=== PATIENT | female | born 1950 | race Caucasian/White ===

== ENCOUNTER 2017-02-05 08:36 | Outpatient (CLI) | payer OTHER ==
[2017-02-05 08:58] LABS: #Basophils 0.1 thou/uL (0.0-0.2); #Eosinphils 0.2 thou/uL (0.0-0.7); #Lymphocytes 1.9 thou/uL (1.20-3.40); #Monocytes 0.6 thou/uL (0.11-0.59); #Neutrophils 3.3 thou/uL (1.40-6.50); %Basophils 1.7 % (0.0-1.0); %Eosinophils 3.8 % (0.0-10.0); %Lymphocytes 31.2 % (21.0-51.0); %Neutrophils 54.3 % (42.0-75.0); Hemoglobin 14.4 g/dL (12.0-16.0); Mean Corpuscular HGB CONC 34.2 g/dL (32.0-36.0); Mean Corpuscular Hemoglobin 29.5 pg (27.0-31.0); Mean Corpuscular Volume 86.1 fl (81.0-99.0); Mean Platelet Volume 7.7 fL (7.4-10.4); Platelet Count 266 thou/uL (130-400); Red Blood Cell (RBC) Count 4.88 mill/uL (4.20-5.40); White Blood Cell (WBC) Count 6.1 thou/uL (4.8-10.8)
[2017-02-05 09:18] LABS: ALT (SGPT) 39 U/L (8-55); AST (SGOT) 26 U/L (5-34); Albumin 4.4 g/dL (3.4-4.8); Alkaline Phosphatase 55 U/L (40-150); Anion Gap 19 mmol/L (10-20); BUN (Urea Nitrogen) 9 mg/dL (9.8-20.1); Bilirubin, Total 0.6 mg/dL (0.2-1.2); Calc. Creatinine Clearance 0 mL/min (70-130); Calcium 9.6 mg/dL (7.8-10.44); Carbon Dioxide 22 mmol/L (23-31); Cardiac Risk 4.2 (Less than 4.5); Chloride 102 mmol/L (98-107); Cholesterol 134 mg/dl (< 200 Desired); Estimated GFR-MDRD 71; Globulin 3.1 g/dL (2.4-3.5); Glucose 118 mg/dL (80-115); HDL Cholesterol 32 mg/dL (>60 Neg Risk); LDL Cholesterol, Calculated 71 mg/dL; Potassium 3.7 mmol/L (3.5-5.1); Protein, Total 7.5 g/dL (6.0-8.3); Sodium 139 mmol/L (136-145); Triglycerides 156 mg/dL (Less than 150)
== END 2017-02-05 08:37 | disposition home or self-care (01) ==
LOC: MADLAB 08:36
PROVIDERS: ATTEND Family Medicine
DX: E03.9 Hypothyroidism, unspecified (principal); E78.00 Pure hypercholesterolemia, unspecified; I10 Essential (primary) hypertension
CPT/HCPCS: 36415; 80053; 80061; 84443; 85025

== ENCOUNTER 2017-02-22 17:16 | Emergency (ER) | payer OTHER ==
[2017-02-22] MEDS ORDERED: cloNIDine HCl 0.1 MG TAB ONE (17:47)
[2017-02-22] MEDS ORDERED: Aspirin 325 MG TAB ONE (17:47)
[2017-02-22 19:51] LABS: ALT (SGPT) 40 U/L (8-55); AST (SGOT) 28 U/L (5-34); Albumin 4.1 g/dL (3.4-4.8); Alkaline Phosphatase 50 U/L (40-150); Anion Gap 15 mmol/L (10-20); BUN (Urea Nitrogen) 10 mg/dL (9.8-20.1); Bilirubin, Total 0.3 mg/dL (0.2-1.2); Calc. Creatinine Clearance 0 mL/min (70-130); Calcium 8.9 mg/dL (7.8-10.44); Carbon Dioxide 23 mmol/L (23-31); Chloride 106 mmol/L (98-107); Estimated GFR-MDRD 86; Globulin 2.8 g/dL (2.4-3.5); Glucose 108 mg/dL (80-115); Lipase 84 U/L (8-78); Potassium 3.2 mmol/L (3.5-5.1); Protein, Total 6.9 g/dL (6.0-8.3); Sodium 141 mmol/L (136-145)
[2017-02-22 19:53] LABS: CKMB 2.1 ng/mL (0-6.6); Troponin I 0.012 ng/mL (< 0.028)
[2017-02-22 19:57] LABS: Eosinophils 3 % (0-10); Lymphocytes 36 % (21-51); MDiff Complete? YES; Mean Corpuscular HGB CONC 34.7 g/dL (32.0-36.0); Mean Corpuscular Hemoglobin 29.3 pg (27.0-31.0); Mean Corpuscular Volume 84.2 fl (81.0-99.0); Monocytes 9 % (0-10); Neutrophil 52 % (42-75); PLT Morphology Comment Appears Adequate; Platelet Count 202 thou/uL (130-400); Red Blood Cell (RBC) Count 4.45 mill/uL (4.20-5.40); White Blood Cell (WBC) Count 6.3 thou/uL (4.8-10.8)
[2017-02-22 19:57] LABS: Prothrombin Time 13.9 SEC (12.0-14.7)
[2017-02-22 20:00] LABS: PTT 20.2 SEC (22.9-36.1)
== END 2017-02-22 20:40 | disposition home or self-care (01) ==
LOC: MADERS 17:16
DX: R09.1 Pleurisy (principal); R07.89 Other chest pain; I10 Essential (primary) hypertension; E78.5 Hyperlipidemia, unspecified; F17.210 Nicotine dependence, cigarettes, uncomplicated; Z79.899 Other long term (current) drug therapy
CPT/HCPCS: 80053; 82553; 83690; 83880; 84484; 85025; 85610; 85730; 93005

== ENCOUNTER 2018-10-06 07:25 | Outpatient (CLI) | payer OTHER, BC ==
[2018-10-06 09:50] LABS: ALT (SGPT) 85 U/L (8-55); AST (SGOT) 54 U/L (5-34); Albumin 4.3 g/dL (3.4-4.8); Alkaline Phosphatase 57 U/L (40-150); Bilirubin, Direct 0.3 mg/dL (0.1-0.3); Bilirubin, Total 0.7 mg/dL (0.2-1.2); Glucose 131 mg/dL (80-115); Protein, Total 7.5 g/dL (6.0-8.3)
--- NOTE | 2018-10-06 10:41 | ULT ---
RIGHT UPPER QUADRANT ULTRASOUND: 10/06/2018 HISTORY: Right upper quadrant fullness after eating. Pressure sensation. COMPARISON: None available. FINDINGS: Portions of the distal infrarenal abdominal aorta are obscured by shadowing from bowel gas. Mild ath erosclerotic plaque is seen in the region of the mid abdominal aorta. The abdominal aorta is normal in caliber. The visualized portions of the IVC, limited visualized portions of the pancreas, the gallbladder, and the right kidney demonstrate a normal sonographic appearance. The right kidney measures 10.4 cm in length. The common duct measures 0.2 cm in diameter, which is within normal limits. The liver demonstrates increased echogenicity, relative to right kidney, suggesting fatty infiltratio n. No focal hepatic lesion is seen. IMPRESSION: 1. Fatty infiltration of the liver. 2. No gallbladder calculi are seen, and the common duct is normal in caliber. POS: SHANE
== END 2018-10-06 07:26 | disposition home or self-care (01) ==
LOC: MADLABBHPM 07:25
PROVIDERS: ATTEND Family Medicine
DX: R73.01 Impaired fasting glucose (principal); K76.89 Other specified diseases of liver; K76.0 Fatty (change of) liver, not elsewhere classified
CPT/HCPCS: 36415; 76705; 80076; 82947

== ENCOUNTER 2020-08-25 09:50 | Outpatient (CLI) | payer OTHER, BC ==
--- NOTE | 2020-08-25 10:44 | ULT ---
EXAM: Right upper quadrant ultrasound PROVIDED CLINICAL HISTORY: History of fatty liver COMPARISON: None FINDINGS: Visualized portions of the pancreas and IVC appear normal. Liver demonstrates no mass or intrahepatic biliary ductal dilatation. The liver appears echogenic and demonstrates a coarsened echotexture, compatible with fatty infiltration. Common duct is nondilated. Gallbladder demonstrates a gallstone without wall thickening or pericholec ystic fluid. Right kidney demonstrates no hydronephrosis or mass. IMPRESSION: 1. Fatty infiltration of the liver. 2. Cholelithiasis.
== END 2020-08-25 09:51 | disposition home or self-care (01) ==
LOC: MADULT 09:50
PROVIDERS: ATTEND Physician Assistant Medical
DX: K76.0 Fatty (change of) liver, not elsewhere classified (principal); K80.20 Calculus of gallbladder without cholecystitis without obstruction
CPT/HCPCS: 76705

== ENCOUNTER 2021-08-28 11:12 | Outpatient (CLI) | payer MEDICARE, BC ==
[2021-08-28 12:13] LABS: #Basophils 0.1 thou/uL (0.0-0.2); #Eosinphils 0.3 thou/uL (0.0-0.7); #Lymphocytes 2.1 thou/uL (1.20-3.40); #Monocytes 0.6 thou/uL (0.11-0.59); #Neutrophils 3.9 thou/uL (1.40-6.50); %Basophils 1.7 % (0.0-1.0); %Eosinophils 3.8 % (0.0-10.0); %Lymphocytes 30.2 % (21.0-51.0); %Monocytes 8.8 % (0.0-10.0); %Neutrophils 55.5 % (42.0-75.0); Hemoglobin 14.3 g/dL (12.0-16.0); Mean Corpuscular HGB CONC 33.2 g/dL (32.0-36.0); Mean Corpuscular Hemoglobin 27.9 pg (27.0-31.0); Mean Platelet Volume 7.1 fL (7.4-10.4); Platelet Count 260 thou/uL (130-400); RBC Distribution Width 11.5 % (11.5-14.5); Red Blood Cell (RBC) Count 5.12 mill/uL (4.20-5.40)
[2021-08-28 12:25] LABS: ALT (SGPT) 25 U/L (8-55); AST (SGOT) 18 U/L (5-34); Albumin 4.7 g/dL (3.4-4.8); Alkaline Phosphatase 59 U/L (40-110); Anion Gap 17 mmol/L (10-20); BUN (Urea Nitrogen) 13 mg/dL (9.8-20.1); Bilirubin, Total 0.8 mg/dL (0.2-1.2); Calc. Creatinine Clearance 0 mL/min (70-130); Calcium 8.3 mg/dL (7.8-10.44); Carbon Dioxide 27 mmol/L (23-31); Cardiac Risk 5.4 (Less than 4.5); Chloride 98 mmol/L (98-107); Cholesterol 204 mg/dl (< 200 Desired); Globulin 3.4 g/dL (2.4-3.5); Glucose 119 mg/dL (80-115); HDL Cholesterol 38 mg/dL (>60 Neg Risk); LDL Cholesterol, Calculated 116 mg/dL; Potassium 3.4 mmol/L (3.5-5.1); Protein, Total 8.1 g/dL (5.8-8.1); Sodium 139 mmol/L (136-145); Triglycerides 250 mg/dL (Less than 150)
== END 2021-08-28 11:13 | disposition home or self-care (01) ==
LOC: MADEKG 11:12
PROVIDERS: ATTEND Family Medicine
DX: K76.89 Other specified diseases of liver (principal); E78.00 Pure hypercholesterolemia, unspecified; I10 Essential (primary) hypertension; E03.9 Hypothyroidism, unspecified
CPT/HCPCS: 36415; 80053; 80061; 84443; 85025; 93005; 93010

== ENCOUNTER 2025-03-12 10:12 | Outpatient (CLI) | payer MEDICARE, BC ==
[2025-03-12 10:43] LABS: Anion Gap 15 mmol/L (10-20); BUN (Urea Nitrogen) 13 mg/dL (9.8-20.1); Calc. Creatinine Clearance 0 mL/min (70-130); Calcium 9.8 mg/dL (7.8-10.44); Carbon Dioxide 23 mmol/L (23-31); Chloride 105 mmol/L (98-107); Glucose 127 mg/dL (83-110); Magnesium 1.5 mg/dL (1.6-2.6); Potassium 4.1 mmol/L (3.5-5.1); Sodium 139 mmol/L (136-145)
== END 2025-03-12 10:13 | disposition home or self-care (01) ==
LOC: MADLAB 10:12
PROVIDERS: ATTEND Internal Medicine Nephrology
DX: I10 Essential (primary) hypertension (principal)
CPT/HCPCS: 36415; 80048; 83735